=== PATIENT | male | born 1950 | race Caucasian/White ===

== ENCOUNTER 2024-10-28 11:15 | Observation (INO) | payer OTHER ==
[~2024-10-28] VITALS: Ht 167.6 cm; Wt 89.0 kg
[2024-10-28] VITALS (17 sets, daily range): BP systolic 130–191; BP diastolic 54–89
[~2024-10-28 11:15] MED LIST: AZELASTINE137 MCG/01; Acetaminophen 500 MG Tab PO SCH; DULERA 100 MCG/13 GM INH; LORA10ER PO; Lactated Ringer's 1,000 ML IV SCH; MULTI-VITAMIN1 EAC2 PO; OMEP20ER PO; TAMS.4ER PO; TRAZ100 PO; VITAMIN D5000 UNIT PO; ZINC15 PO
[2024-10-28] MEDS ORDERED: OxyCODONE HCL 5 MG TAB PO PRN (12:05)
[2024-10-28] MEDS ORDERED: Metoclopramide HCl 5MG / ML 2ML Vial IV PRN ×2 (12:10→12:35)
[2024-10-28] MEDS ORDERED: FLU VACC TS2024-25(6MOS UP)/PF 45 MCG/0.5 ML SYRINGE IM SCH (12:10)
[2024-10-28] MEDS ORDERED: Ondansetron HCl 2 MG / ML 2ML Vial IV PRN ×2 (12:10→12:35)
[2024-10-28] MEDS ORDERED: HYDROmorphone HCl/Pf 1MG SYR IV PRN ×3 (12:10→12:35)
[2024-10-28] MEDS ORDERED: Bupivacaine 0.5% HCl 5 MG/ML 30MLVIAL ONE (12:13)
[2024-10-28] MEDS ORDERED: Mometasone/Formoterol MDI 100/5 mcg 13 GM INH SCH (12:15)
[2024-10-28] MEDS ORDERED: Ketorolac Tromethamine 15mg Vial IV PRN (12:20)
[2024-10-28] MEDS ORDERED: propofoL 20 ML IV ONE (12:20)
[2024-10-28] MEDS ORDERED: FentaNYL Citrate 50 MCG/ML 2 ML Injection ONE ×2 (12:21→12:53)
[2024-10-28] MEDS ORDERED: Lidocaine HCl 2% 20 ML MDV ONE (12:21)
[2024-10-28] MEDS ORDERED: Rocuronium Bromide 10 MG/ML 5ML Injection IV ONE (12:21)
[2024-10-28] MEDS ORDERED: FentaNYL Citrate 50 MCG/ML 2 ML Injection IV PRN ×2 (12:30)
[2024-10-28] MEDS ORDERED: Ondansetron HCl 2 MG / ML 2ML Vial ONE (12:34)
[2024-10-28] MEDS ORDERED: Dexamethasone Sod Phos 10 MG/ML 1ML VIAL ONE (12:34)
[2024-10-28] MEDS ORDERED: ePHEDrine Sulfate 50 MG/ML 1ML Injection IV PRN (12:35)
[2024-10-28] MEDS ORDERED: Albuterol 2.5 MG/3 ML VIAL INH PRN (12:35)
[2024-10-28] MEDS ORDERED: Labetalol HCL 5 MG/ML 4ML Injection (Single Dose) IV PRN (12:35)
[2024-10-28] MEDS ORDERED: HydrALAZINE HCl 20 MG / ML 1ML Vial IV PRN (12:40)
[2024-10-28] MEDS ORDERED: HYDROcodone 5-APAP 325 TAB PO PRN (12:40)
[2024-10-28] MEDS ORDERED: HYDROmorphone HCl/Pf 1MG SYR ONE (12:47)
[2024-10-28] MEDS ORDERED: Sugammadex Sodium 200 MG/2ML SDV (100 MG/ML) ONE (13:48)
[2024-10-28] MEDS ORDERED: HydrALAZINE HCl 20 MG / ML 1ML Vial ONE (15:02)
--- NOTE | 2024-10-28 16:31 | NUR ---
ARRIVAL PT ARRIVED TO UNIT FROM PACU S/P FUNDOPLICATION PT REPORTS PAIN IN HIS NECK PRIMARILY, DENIES OTHERWISE. SOME NAUSEA, MEDICATION PER EMAR. PAIN IMPROVING. LAP SITES X4, CDI WITH WOUND GLUE. PT TOLERATING SMALL AMOUNTS OF WATER. SPOUSE AT BEDSIDE.
--- NOTE | 2024-10-28 17:52 | NUR ---
SHIFT SUMMARY PT SITTING AT EDGE OF BED EATING, DENIES DIFFICULTY WITH SWALLOWING. NO PAIN IN ABDOMEN ONLY IN NECK AT THIS TIME. PT WANTS TO AMBULATE AFTER DINNER AND REPORTS THAT WILL HELP HIM FEEL BETTER.
[2024-10-28] MEDS ORDERED: TraZODone HCl 100 MG Tab PO SCH (21:00)
[2024-10-29 02:25] VITALS: BP 133/56
[2024-10-29 06:56] LABS: Hematocrit 37.2 % (37.0-53.0); Hemoglobin 12.5 g/dL (13.5-17.5); Mean Corpuscular HGB 28.5 pg (26.0-34.0); Mean Corpuscular HGB Conc 33.6 g/dL (31.5-36.5); Mean Corpuscular Volume 85 fL (80-100); Mean Platelet Volume 10.6 fL (9.1-12.4); Platelet Count 197 K/mm3 (150-400); RDW Coefficient Variation 12.9 % (11.7-14.2); RDW Standard Deviation 39.7 fL (35.1-46.3); Red Blood Cell Count 4.39 M/mm3 (4.30-5.90); White Blood Cell Count 11.48 K/mm3 (4.00-11.30)
[2024-10-29 07:21] VITALS: BP 135/58
--- NOTE | 2024-10-29 07:35 | NUR ---
SHIFT SUMMARY NOC. PT A/OX4. LAP SITES C/D/I X4. PT VOIDING, PASSING GAS, TOLERATING DIET ORDERED. MEDICATED FOR PAIN WITH REPORTED RELIEF NORCO 2 PILLS AT A TIME. PT HAD 1 DESAT EPISODE D/T DECLINING CPAP USE. PLACED ON 1L. PT ON RA WITH NO DESAT WHILE AWAKE. MAKES NEEDS KNOWN, CALL LIGHT IN REACH.
[2024-10-29] MEDS ORDERED: Enoxaparin 40 MG/0.4 ML SYR SC SCH (09:00)
[2024-10-29] MEDS ORDERED: Loratadine 10 MG Tab PO SCH (09:00)
[2024-10-29] MEDS ORDERED: Tamsulosin HCl 0.4 MG Cap PO SCH (09:00)
[2024-10-29] MEDS ORDERED: LORCET 5-325 M1 EACH PO (09:39)
[2024-10-29 10:00] VITALS: BP 126/64
--- NOTE | 2024-10-29 10:11 | NUR ---
discharged declined am meds. reviewed dc instructions with pt; verbalized understanding. iv dc'd. vss. pt declined wc, left unit by ambulation w/possessions and dc paperwork in hand, accompanied by spouse.
== END 2024-10-29 10:07 | disposition home or self-care (01) ==
LOC: PRE IP 11:15 → MEDS 11:15 → PRE IP 12:30 → SURS 15:10
PROVIDERS: ADMIT Surgery
PROC: 0BQT3ZZ Repair Diaphragm, Percutaneous Approach (ICD-10-PCS; principal; 2024-10-28 12:30)
DX: K44.9 Diaphragmatic hernia without obstruction or gangrene (principal); K21.9 Gastro-esophageal reflux disease without esophagitis; K22.2 Esophageal obstruction; E78.5 Hyperlipidemia, unspecified; I10 Essential (primary) hypertension; F43.10 Post-traumatic stress disorder, unspecified; Z79.899 Other long term (current) drug therapy; Z87.891 Personal history of nicotine dependence
CPT/HCPCS: 36415; 85027; 94640; 94664; 94760; 94762; A9270; J0360; J1100; J1171; J1885; J2405; J2704; J3010; J7120

== ENCOUNTER → 2025-02-02 | Outpatient (CLI) | payer MEDICARE, OTHER ==
[~2025-02-02] MED LIST changes: -Acetaminophen 500 MG Tab PO SCH; +LORCET 5-325 M1 EACH PO; -Lactated Ringer's 1,000 ML IV SCH
== END | disposition home or self-care (01) ==
LOC: LAB 18:34 → LAB SHORT 18:34
DX: L02.512 Cutaneous abscess of left hand (principal)
CPT/HCPCS: 87070; 87075; 87077; 87147; 87186; 87205

== ENCOUNTER 2025-04-21 14:28 | Emergency (ER) | payer MEDICARE ==
[~2025-04-21] VITALS: Ht 170.2 cm; Wt 84.9 kg
[2025-04-21] MEDS ORDERED: MONT10T PO (14:40)
[2025-04-21] MEDS ORDERED: ARNUITY ELLIPT50 MCG INH (14:40)
[2025-04-21] MEDS ORDERED: ROSUVASTATIN CAL5 MG PO (14:41)
[2025-04-21] MEDS ORDERED: IPRATROPIUM BRO30 ML (14:41)
[2025-04-21 15:37] LABS: BASOPHILS ABSOLUTE AUTO 0.03 K/mm3 (0.00-0.23); BASOPHILS PERCENT AUTO 1 % (0-2); EOSINOPHILS ABSOLUTE AUTO 0.28 K/mm3 (0.00-0.68); EOSINOPHILS PERCENT AUTO 7 % (0-6); Hematocrit 34.1 % (37.0-53.0); Hemoglobin 11.4 g/dL (13.5-17.5); IMMATURE GRAN ABSOLUTE AUTO 0.02 K/mm3 (0.00-0.10); IMMATURE GRAN PERCENT AUTO 1 % (0-1); LYMPHOCYTES ABSOLUTE AUTO 0.84 K/mm3 (0.84-5.20); LYMPHOCYTES PERCENT AUTO 20 % (21-46); MONOCYTES ABSOLUTE AUTO 0.46 K/mm3 (0.16-1.47); MONOCYTES PERCENT AUTO 11 % (4-13); Mean Corpuscular HGB Conc 33.4 g/dL (31.5-36.5); Mean Corpuscular Volume 84 fL (80-100); NEUTROPHILS ABSOLUTE AUTO 2.66 K/mm3 (1.96-9.15); NEUTROPHILS PERCENT AUTO 62 % (41-73); NRBC ABSOLUTE 0.00 K/mm3 (0.00-0.02); NRBC Auto 0.0 /100 WBC (0.0-0.2); Platelet Count 156 K/mm3 (150-400); RDW Coefficient Variation 13.1 % (11.7-14.2); RDW Standard Deviation 40.0 fL (35.1-46.3)
[2025-04-21 16:02] LABS: Alanine Aminotransfer (ALT/SGP 38.0 U/L (12-78); Albumin, Blood 2.8 g/dL (3.4-5.0); Albumin/Globulin Ratio 0.8 (0.8-1.8); Anion Gap 7.0 mmol/L (3-11); Aspartate Aminotrans (AST/SGOT 23.0 U/L (12-37); Bilirubin, Total 0.3 mg/dL (0.1-1.0); Blood Urea Nitrogen 21.0 mg/dL (8-24); C-REACTIVE PROTEIN, EXT RANGE 2.49 mg/dL (0.000-0.300); CO2, Blood 26.0 mmol/L (21-32); Calcium, Blood 8.9 mg/dL (8.5-10.1); Chloride, Blood 107.0 mmol/L (98-108); Creatinine, Blood 1.0 mg/dL (0.60-1.20); Globulin, Blood 3.7 g/dL (2.2-4.0); Glucose, Blood 112.0 mg/dL (70-99); Potassium, Blood 3.6 mmol/L (3.5-5.5); Sodium, Blood 136.0 mmol/L (136-145); Total Protein, Blood 6.5 g/dL (6.4-8.2)
[2025-04-21] MEDS ORDERED: Morphine Sulfate 4 MG/1 ML Injection IV ONE (16:05)
[2025-04-21 18:00] VITALS: BP 164/81
[2025-04-21] MEDS ORDERED: DOXY100 PO (18:15)
== END 2025-04-21 18:45 | disposition home or self-care (01) ==
LOC: ER 14:28
PROVIDERS: Student in an Organized Health Care Education/Training Program
DX: L27.1 Localized skin eruption due to drugs and medicaments taken internally (principal); L03.115 Cellulitis of right lower limb; T36.8X5A Adverse effect of other systemic antibiotics, initial encounter; I10 Essential (primary) hypertension; Z89.611 Acquired absence of right leg above knee; Z79.899 Other long term (current) drug therapy
CPT/HCPCS: 73701; 80053; 85025; 85651; 86140; 96374-59; 99283-25; A9270; J2270; Q9967

== ENCOUNTER 2025-05-21 06:25 | Day surgery (SDC) | payer OTHER ==
[~2025-05-21] VITALS: Ht 170.2 cm; Wt 85.7 kg
[~2025-05-21 06:25] MED LIST changes: +ARNUITY ELLIPT50 MCG INH; +Balanced Salt Epinephrine Irrigation Solution 500 mL IR SCH; +DOXY100 PO; +IPRATROPIUM BRO30 ML; +MONT10T PO; +Moxifloxacin HCL 0.5 MG/0.1 ML 0.4MLSYR LEFTEYE SCH; +Ondansetron 4 MG SoluTab MM PRN; +PHENYLEPHRINE\\TROPICAMIDE\\TETRACAINE OPHTHALMIC DILATING SOLN LEFTEYE PRN; +Povidone-Iodine 450 DROP/30 ML Solution LEFTEYE SCH; +Povidone-Iodine 450 DROP/30 ML Solution ONE; +ROSUVASTATIN CAL5 MG PO; +Tetracaine HCl/Pf 0.5% Opth Soln 4 ml ONE; +Triamcinolone Inj Susp 40 MG / ML 1ML Vial INJ SCH
[2025-05-21] MEDS ORDERED: Triamcinolone Inj Susp 40 MG / ML 1ML Vial ONE (06:46)
[2025-05-21] MEDS ORDERED: IPRATROPIUM BRO30 ML (07:07)
[2025-05-21] MEDS ORDERED: BENZ100A PO (07:09)
[2025-05-21] MEDS ORDERED: FLUT1DIS5 INH (07:09)
--- NOTE | 2025-05-21 07:20 | NUR ---
05/21/25 0720 Raiza Perea TETRACAINE IN AT 0702 PLEDGETT IN AT 0704 CALL LIGHT IN PT HAND. PT REPORTS ANXIETY -11/03. DR BRUSH WAS TEXTED AT APPROX 0700 REGARDING PT'S LOW HEART RATE PRIMARILY IN THE MID 40S OCCASIONALLY RISING INTO THE LOW 50S. AWAITING RESPONSE REGARDING PROCEEDING WITH VALIUM SO VALIUM HAS NOT BEEN GIVEN YET.
--- NOTE | 2025-05-21 08:02 | NUR ---
05/21/25 0802 Lisa Guerin VITALS AT 0801 BP: 157/74 P: 46 O2: 98% WITH 10 LITERS OF BLOW BY OXYGEN
[2025-05-21 08:36] VITALS: BP 157/74
--- NOTE | 2025-05-21 08:37 | NUR ---
05/21/25 0837 Junaid Zuniga HR 46-50 IN SDU. PT STATES THIS IS HIS BASELINE. HE DENIED CP, DIZZINESS, WEAKNESS, SOB, NAUSEA, AND OTHER SYMPTOMS.
== END 2025-05-21 08:27 | disposition home or self-care (01) ==
LOC: ORSCSDS 06:25
PROVIDERS: Ophthalmology
PROC: 08RK3JZ Replacement of Left Lens with Synthetic Substitute, Percutaneous Approach (ICD-10-PCS; principal; 2025-05-21 08:00)
DX: H25.812 Combined forms of age-related cataract, left eye (principal); I10 Essential (primary) hypertension; E78.5 Hyperlipidemia, unspecified; F41.9 Anxiety disorder, unspecified; F32.A Depression, unspecified; F43.10 Post-traumatic stress disorder, unspecified; G47.33 Obstructive sleep apnea (adult) (pediatric); Z79.899 Other long term (current) drug therapy
CPT/HCPCS: A9270; J2003; J3301; V2632

== ENCOUNTER 2025-06-03 06:07 | Day surgery (SDC) | payer OTHER ==
[~2025-06-03] VITALS: Ht 170.2 cm; Wt 85.4 kg
[~2025-06-03 06:07] MED LIST changes: +BENZ100A PO; +FLUT1DIS5 INH; -Moxifloxacin HCL 0.5 MG/0.1 ML 0.4MLSYR LEFTEYE SCH; +Moxifloxacin HCL 0.5 MG/0.1 ML 0.4MLSYR RIGHTEYE SCH; -PHENYLEPHRINE\\TROPICAMIDE\\TETRACAINE OPHTHALMIC DILATING SOLN LEFTEYE PRN; +PHENYLEPHRINE\\TROPICAMIDE\\TETRACAINE OPHTHALMIC DILATING SOLN RIGHTEYE PRN; -Povidone-Iodine 450 DROP/30 ML Solution LEFTEYE SCH; -Povidone-Iodine 450 DROP/30 ML Solution ONE; +Povidone-Iodine 450 DROP/30 ML Solution RIGHTEYE SCH
[2025-06-03] MEDS ORDERED: Povidone-Iodine 450 DROP/30 ML Solution ONE (06:08)
--- NOTE | 2025-06-03 06:40 | NUR ---
06/03/25 0640 Brittanie Dumas PT STATES ANXIETY LEVEL PRIOR TO PROCEDURE WAS A 0. 10MG OF VALIUM GIVEN AT 0630. PULSE OXIMETRY IN PLACE SHOWING SPO2 OF 100% ON RA. TETRACAINE IN AT 0631 PLEDGETT IN AT 0632 PT TOLERATED WELL. CALL LIGHT IN REACH. AT BESIDE.
[2025-06-03] MEDS ORDERED: Triamcinolone Inj Susp 40 MG / ML 1ML Vial ONE (06:44)
--- NOTE | 2025-06-03 07:43 | NUR ---
06/03/25 0743 KELSEY PETE PT VSS T/O PROCEDURE. PT WITH KNOWN BRADYCARDIA, DR MILES. 2ND EYE. 142/67, HR 44, O2 100 %
--- NOTE | 2025-06-03 07:55 | NUR ---
06/03/25 0755 Jordan Paz REPORT GIVEN TO Petey CANTRELL RN
[2025-06-03 07:56] VITALS: BP 141/62
== END 2025-06-03 08:04 | disposition home or self-care (01) ==
LOC: ORSCSDS 06:07
PROVIDERS: Ophthalmology
PROC: 08RJ3JZ Replacement of Right Lens with Synthetic Substitute, Percutaneous Approach (ICD-10-PCS; principal; 2025-06-03 07:30)
DX: H25.811 Combined forms of age-related cataract, right eye (principal); H35.3131 Nonexudative age-related macular degeneration, bilateral, early dry stage; Z96.1 Presence of intraocular lens; I10 Essential (primary) hypertension; E78.5 Hyperlipidemia, unspecified; G47.33 Obstructive sleep apnea (adult) (pediatric); K21.9 Gastro-esophageal reflux disease without esophagitis; F41.9 Anxiety disorder, unspecified; F32.A Depression, unspecified; F43.10 Post-traumatic stress disorder, unspecified; Z79.899 Other long term (current) drug therapy; Z87.891 Personal history of nicotine dependence
CPT/HCPCS: A9270; J2003; J3301; V2632